=== PATIENT | female | born 1985 | race Hispanic/Latino ===

== ENCOUNTER 2017-12-06 17:07 | Emergency (ER) | payer OTHER ==
[~2017-12-06] VITALS: Ht 157.5 cm; Wt 75.7 kg
--- OUTSIDE RECORDS SUMMARY | 2017-12-06 17:10 | XMS REPORT ---
Author Author [facility] Address Unknown Phone Unavailable Care Team Providers Care Probate Lawyer Name Role Phone INDU TONEY Unavailable Unavailable Problems This patient has no known problems. Allergies, Adverse Reactions, Alerts This patient has no known allergies or adverse reactions. Medications This patient has no known medications. Results Test Description Test Time Test Comments Text Results Atomic Results Result Comments CHEST 2 VIEWS [place] [address] Patient Name: BRITTANI HENLEY MR #: [id number] : 1985 Age/Sex: 31/F Req #: [id number] Adm Physician: Ordered by: INDU TONEY MD Report #: [id number] Location: ER Room/Bed: Procedure: [id number] DX/CHEST 2 VIEWS Exam Date: 07/15/17 Exam Time: 1430 REPORT STATUS: Signed EXAMINATION: PA and lateral views of the chest. COMPARISON: None CLINICAL HISTORY: Chest pain DISCUSSION: Lines/tubes: None. Lungs: The lungs are well inflated and clear. There is no evidence of pneumonia or pulmonary edema. Pleura: There is no pleural effusion or pneumothorax. Heart and mediastinum: Cardiomediastinal silhouette is unremarkable. Pulmonary vasculature is normal. Bones and soft tissues: No acute bony abnormalities. IMPRESSION: No acute cardiopulmonary abnormalities. Signed by: Dr. Ally Zaragoza M.D. on 07/15/2017 2:45 PM Dictated By: ALLY ZARAGOZA MD 144 Transcribed By: MATT on 07/15/17 144 COPY TO: INDU TONEY MD
--- NOTE | 2017-12-06 18:48 | Diagnostic Imaging Report ---
PROCEDURE:TRANSVAGINAL ULTRASOUND COMPARISON:None. INDICATIONS:EVALUATE FOR RPOC. Status post D\T\C 2 weeks ago TECHNIQUE: Grayscale transverse and sagittal transabdominal and transvaginal images were obtained of the pelvis. Transvaginal imaging was medically necessary to better evaluate the endometrium.. FINDINGS: 32 year-old female patient G5, P4, A1 with stated LMP 09/05/2017 UTERUS: 8.3 x 5.1 x 7.2 cm. Anteverted. No focal lesions. 1.0 x 0.6 x 1.0 cm and 2.5 x 0.6 x 0.7 cm hypoechoic lesions in the cervix, which may represent a minimally complex nabothian cysts. ENDOMETRIUM: Endometrial stripe measures 1.4 cm. Heterogeneous endometrium with hyperechoic area at the fundus, measuring 2.3 x 1.5 x 1.8 cm, with increased vascularity. RIGHT OVARY: 1.7 x 2.5 x 2.4 cm. No focal lesions. LEFT OVARY: 2.4 x 2.6 x 1.9 cm. No focal lesions. There is no free fluid within the pelvis. No adnexal masses. CONCLUSION: 1. Findings in the endometrium highly suggestive of retained product of conception in the clinical setting. Martin Zaragoza M.D. Dictated by: Martin Zaragoza M.D. on 12/06/2017 at 18:47 Electronically approved by: Martin Zaragoza M.D. on 12/06/2017 at 18:47
[2017-12-06 18:56] LABS: BILIRUBIN,URINE NEGATIVE (NEGATIVE); CLARITY,URINE HAZY (CLEAR); COLOR,URINE RED (YELLOW); KETONES,URINE NEGATIVE (NEGATIVE); LEUKOCYTE ESTERASE ,URINE TRACE (NEGATIVE); NITRITE,URINE NEGATIVE (NEGATIVE); URINE UROBILINOGEN 0.2 mg/dL (0.2 - 1)
[2017-12-06 18:59] LABS: PROTEIN,URINE DIPSTICK 1+ (NEGATIVE)
[2017-12-06 19:08] LABS: RBC,URINE >50 /HPF (0-5); WBC,URINE (MAN) 0-5 /HPF (0-5)
[2017-12-06 19:15] LABS: BASOPHILS # (AUTO) 0.1 (0.0-0.1); BASOPHILS % 0.5 % (0.0-1.0); EOSINOPHILS # (AUTO) 0.1 (0.0-0.4); EOSINOPHILS % 1.3 % (0.0-6.0); HEMOGLOBIN 13.5 g/dL (12.0-16.0); LYMPHOCYTES # (AUTO) 1.5 (1.0-3.2); LYMPHOCYTES % 13.6 % (18.0-39.1); MEAN CORPUSCULAR HEMOGLOBIN 31.3 pg (28-32); MEAN CORPUSCULAR HGB CONC 33.8 g/dL (31-35); MEAN CORPUSCULAR VOLUME 92.8 fL (81-99); MONOCYTES # (AUTO) 0.5 (0.2-0.8); MONOCYTES % 4.3 % (4.4-11.3); NEUTROPHILS # (AUTO) 8.7 (2.1-6.9); NEUTROPHILS % 79.8 % (38.7-80.0); PLATELET COUNT 250 x10e3/uL (140-360); RED BLOOD COUNT 4.31 x10e6/uL (3.6-5.1); RED CELL DISTRIBUTION WIDTH 12.8 % (11.7-14.4)
[2017-12-06 19:30] VITALS: BP 133/89
[2017-12-06 19:34] LABS: ALANINE AMINOTRANSFERASE 17 IU/L (0-55); ALBUMIN 4.2 g/dL (3.5-5.0); ALBUMIN/GLOBULIN RATIO 1.1 (0.8-2.0); ALKALINE PHOSPHATASE 47 IU/L (40-150); ANION GAP 11.8 mmol/L (8-16); BLOOD UREA NITROGEN 10 mg/dL (7-26); BUN/CREATININE RATIO 14 (6-25); CALCIUM 9.4 mg/dL (8.4-10.2); CARBON DIOXIDE 24 mmol/L (22-29); CHLORIDE 106 mmol/L (98-107); CREATININE, SERUM 0.69 mg/dL (0.57-1.11); EST GLOMERULAR FILTRATION RATE > 60 ML/MIN (60-); GLUCOSE 105 mg/dL (74-118); POTASSIUM 3.8 mmol/L (3.5-5.1); SODIUM 138 mmol/L (136-145)
== END 2017-12-06 19:36 | disposition home or self-care (01) ==
LOC: ER 17:07
DX: O04.6 Delayed or excessive hemorrhage following (induced) termination of pregnancy (principal); N93.8 Other specified abnormal uterine and vaginal bleeding
CPT/HCPCS: 36415; 76830; 80053; 81001; 84702; 85025; 99284

== ENCOUNTER 2019-11-21 09:47 | Emergency (ER) | payer BC, OTHER ==
[~2019-11-21] VITALS: Ht 154.9 cm; Wt 70.1 kg
[2019-11-21] MEDS ORDERED: IBUPROFEN 400 MG TAB PO ONE (10:30)
[2019-11-21] MEDS ORDERED: IBUPROFEN 400 MG TAB ONE (10:33)
--- NOTE | 2019-11-21 10:45 | Diagnostic Imaging Report ---
Left ankle, 3 views. History: Fall downstairs. Findings: There is lateral soft tissue swelling. Bone mineralization is normal. Transverse linear lucency is seen along just the lateral cortex of the distal fibula without intra-articular extension or displacement. Remaining bones are intact. There are no lytic or sclerotic lesions. The joint spaces are within normal limits. IMPRESSION: Nondisplaced fracture of the lateral malleolus. Signed by: Dashawn Lopez on 11/21/2019 10:42 AM
[2019-11-21] MEDS ORDERED: NAPROSYN500 MG PO (11:10)
[2019-11-21 11:21] VITALS: BP 172/89
== END 2019-11-21 11:35 | disposition home or self-care (01) ==
LOC: FSED 09:47
DX: S82.65XA Nondisplaced fracture of lateral malleolus of left fibula, initial encounter for closed fracture (principal); W10.8XXA Fall (on) (from) other stairs and steps, initial encounter
CPT/HCPCS: 99283

== ENCOUNTER 2020-02-20 06:36 | Inpatient (IN) | payer BC, OTHER ==
[~2020-02-20] VITALS: Ht 160 cm; Wt 72.6 kg
[~2020-02-20 06:36] MED LIST: NAPROSYN500 MG PO
--- OUTSIDE RECORDS SUMMARY | 2020-02-20 06:39 | XMS REPORT | Summary of Care ---
Author Author [facility] - Health Organization [facility] - Health Address Unknown Phone Unavailable Care Team Providers Care Priming Machine Operator Name Role Phone Hilaria Garrison CNM PCP Unavailable Reason for Visit * Reason Comments Appointment wwe Encounter Details Care Team Description Date Type Department Isabel Dacosta CNM [address] [place] [address] Appointment (wwe) 02/09/2020 [facility] [address] [place] [address] Allergies No Known Allergiesdocumented as of this encounter (statuses as of 02/09/2020) Medications End Date Status Medication Sig Dispensed Refills Start Date Active norethindrone (ORTHO Take 1 tablet 1 Package 6 MICRONOR) 0.35 mg by mouth 9 tabletIndications: OCP daily. (oral contraceptive pills) initiation Active methIMAzole 10 mg Take 1 tablet 90 tablet 1 tabletIndications: by mouth 0 Hyperthyroidism daily. documented as of this encounter (statuses as of 02/09/2020) Active Problems Problem Noted Date Hyperthyroidism 04/03/2019 Overview: Stopped meds at delivery. TFTs done 2018 Uses oral contraception 01/30/2019 documented as of this encounter (statuses as of 02/09/2020) Resolved Problems Problem Noted Date Resolved Date Well woman exam 04/03/2019 11/05/2019 Overview: Last pap neg 2018 Screen for STD (sexually transmitted disease) 01/30/2019 11/05/2019 Constipation, unspecified constipation type 01/30/2019 04/03/2019 Breast feeding status of mother 01/13/20192019 (spontaneous vaginal delivery) 01/10/201908/2019 Single live 01/10/2019 01/30/2019 Anemia, 01/10/2019 11/05/2019 Thrombocytopenia 01/10/2019 11/05/2019 39 weeks gestation of 01/08/20192018 with 39 completed weeks gestation 01/08/2019 01/30/2019 Exposure to the flu 12/30/2018 04/03/2019 Anemia of mother in , antepartum 12/26/2018 01/30/2019 Influenza vaccination declined by patient 12/26/2018 04/03/2019 Overview: counseling done Hyperthyroidism affecting in third trimester 09/201904/03/2019 Obesity affecting , antepartum 09/22/2018 04/03/2019 Multiparity 08/23/2018 11/05/2019 Overview: Not for BTL Nausea/vomiting in 08/20/2018 9 Tachycardia 07/08/2018 01/30/2019 High-risk in third trimester 05/29/2018 01/30/2019 History of abnormal cervical Pap smear 05/29/2018 12/26/2018 Obesity (BMI 30.0-34.9) 05/29/2018 12/26/2018 Hyperthyroidism affecting , antepartum 05/29/2018 12/26/2018 Rubella non-immune status, antepartum 05/28/2018 11/05/2019 documented as of this encounter (statuses as of 02/09/2020) Immunizations Name Administration Dates Next Due MMR 04/03/2019, 01/10/2019 Tdap 10/25/2018 documented as of this encounter Social History Date Tobacco Use Types Packs/Day Years Used Never Smoker Smokeless Tobacco: Never Used Drinks/Week oz/Week Comments Alcohol Use No Sex Assigned at Date Recorded Not on file Industry Job Start Date Occupation Not on file Not on file Not on file Travel End Travel History Travel Start No recent travel history available. documented as of this encounter Last Filed Vital Signs Not on filedocumented in this encounter Plan of Treatment Care Team Description Date Type Specialty Isabel Dacosta, CNM [address] [address] [phone] 04/15/2020 Office Visit [facility] Health Maintenance Due Date Last Done Comments INFLUENZA VACCINE (#1) 2019 PAP SMEAR 05/27/2021 05/27/2018 DTaP,Tdap,and Td Vaccines 10/25/2028 10/25/2018 (2 - Td) PNEUMOCOCCAL 0-64 YEARS Aged Out No longer elig ible based COMBINED SERIES on patient's age to complete this topic documented as of this encounter Results Not on filedocumented in this encounter Insurance Type Payer Benefit Subscriber ID Effective Phone Address Plan / Dates Group PPO/POS BCBS OF [place] BCBS OF [id number] 2019-P [phone] P O [facility] [id number] OUT OF [facility] [id number] documented as of this encounter
--- OUTSIDE RECORDS SUMMARY | 2020-02-20 06:39 | XMS REPORT | Summary of Care ---
Author Author [facility] - Health Organization [facility] - Health Address Unknown Phone Unavailable Care Team Providers Care Icu Nurse Name Role Phone Bladimir Hilarianadia Armas CNM PCP Unavailable Reason for Visit * Reason Comments Follow-up pt confirmed med Thyroid Problem Encounter Details Care Team Description Date Type Department Pricila Copeland MD [address] [place] [address] Hyperthyroidism (Primary Dx); Uses oral contraception 11/05/2019 Office Visit [facility] Endocrinology, [address] [phone] Allergies No Known Allergiesdocumented as of this encounter (statuses as of 11/05/2019) Medications End Date Status Medication Sig Dispensed Refills Start Date Active norethindrone (ORTHO Take 1 tablet 1 Package 6 MICRONOR) 0.35 mg by mouth 9 tabletIndications: OCP daily. (oral contraceptive pills) initiation Active methIMAzole 10 mg Take 1 tablet 90 tablet 1 tabletIndications: by mouth 0 Hyperthyroidism daily. 11/05/2019 Discontinued (Error) ibuprofen 600 mg Take 1 tablet 60 tablet 1 tabletIndications: by mouth 9 Multiparity, every 6 (six) (spontaneous vaginal hours as delivery) needed for Pain (scale 1-3) or Pain (scale 4-6) (Pain). Take with food or milk. 11/05/2019 Discontinued (Dose adjustmen t) methIMAzole 5 mg Take 1 tablet 90 tablet 0 tabletIndications: by mouth 9 Hyperthyroidism daily. documented as of this encounter (statuses as of 11/05/2019) Active Problems Problem Noted Date Hyperthyroidism 04/03/2019 Overview: Stopped meds at delivery. TFTs done 2018 Uses oral contraception 01/30/2019 documented as of this encounter (statuses as of 11/05/2019) Resolved Problems Problem Noted Date Resolved Date Well woman exam 04/03/2019 11/05/2019 Overview: Last pap neg 2017 Screen for STD (sexually transmitted disease) 01/30/2019 [...] as of this encounter (statuses as of 11/05/2019) Immunizations Name Administration Dates Next Due MMR [...] of this encounter Last Filed Vital Signs Reading Time Taken Comments Vital Sign 119/79 11/05/2019 10:55 AM QUALITY SYSTEMS SPECIALIST Blood Pressure 83 11/05/2019 10:55 AM QUALITY SYSTEMS SPECIALIST Pulse - - Temperature - - Respiratory Rate 96% 11/05/2019 10:55 AM QUALITY SYSTEMS SPECIALIST Oxygen Saturation - - Inhaled Oxygen Concentration 70.2 kg (154 lb 12.8 oz) 11/05/2019 10:55 AM QUALITY SYSTEMS SPECIALIST Weight 157.5 cm (5' 2") 11/05/2019 10:55 AM QUALITY SYSTEMS SPECIALIST Height 28.31 11/05/2019 10:55 AM QUALITY SYSTEMS SPECIALIST Body Mass Index documented in this encounter Progress Notes * Pricila Copeland MD - 11/05/2019 10:30 AM QUALITY SYSTEMS SPECIALIST Cc: Chief Complaint Patient presents with Follow-up pt confirmed med Thyroid Problem Mariam Garcia is a 33 year old female. Patient developed hyperthyroidism in her first trimester was placed on treatment , her child is ten months olg. She was kennedy to come for her follow up for some time and forgot her requested lab s. Since she ran out of her medicine her palpitations, tremors and anxiety has come back. Allergies Mariam has No Known Allergies. Medications Outpatient Medications Prior to Visit Medication Sig Dispense Refill methIMAzole 5 mg tablet Take 1 tablet by mouth daily. 90 tablet 0 norethindrone (ORTHO MICRONOR) 0.35 mg tablet Take 1 tablet by mouth daily. 1 Package 6 ibuprofen 600 mg tablet Take 1 tablet by mouth every 6 (six) hours as needed for Pain (scale 1-3) or Pain (scale 4-6) (Pain). Take with food or milk. 60 tab let 1 No facility-administered medications prior to visit. Histories Past Medical History: Diagnosis Date Anemia of mother in , antepartum 12/26/2018 Anxiety 2016 HPV (human papilloma virus) anogenital infection 2016 Hyperthyroidism 05/14/2018 Hyperthyroidism affecting in third trimester 12/03/2018 OCP (oral contraceptive pills) initiation 01/30/2019 Pap smear abnormality of cervix 2015 +ASCUS+HPV Thrombocytopenia 01/10/2019 Past Surgical History: Procedure Laterality Date COLPOSCOPY 2016 Social History Socioeconomic History Marital status: Single Spouse name: Not on file Number of children: Not on file Years of education: Not on file Highest education level: Not on file Occupational History Not on file Social Needs Financial resource strain: Not on file Food insecurity: Worry: Not on file Inability: Not on file Transportation needs: Medical: Not on file Non-medical: Not on file Tobacco Use Smoking status: Never Smoker Smokeless tobacco: Never Used Substance and Sexual Activity Alcohol use: No Drug use: No Sexual activity: Yes Partners: Male control/protection: None Comment: Last intercourse: 05/25/2018 Lifestyle Physical activity: Days per week: Not on file Minutes per session: Not on file Stress: Not on file Relationships Social connections: Talks on phone: Not on file Gets together: Not on file Attends hoahaoism service: Not on file Active member of club or organization: Not on file Attends meetings of clubs or organizations: Not on file Relationship status: Not on file Intimate partner violence: Fear of current or ex partner: Not on file Emotionally abused: Not on file Physically abused: Not on file Forced sexual activity: Not on file Other Topics Concern Not on file Social History Narrative Mariam Garcia is a 32 year old female, denies any physical or emotional ab use, no trauma, feels safe at home. Family History Problem Relation Age of Onset No Significant Medical Problems Mother Hyperthyroidism Father High cholesterol Maternal Grandmother No Significant Medical Problems Maternal Grandfather No Significant Medical Problems Paternal Grandmother No Significant Medical Problems Paternal Grandfather Review of Systems Constitutional: Negative. HENT: Negative. Respiratory: Negative. Cardiovascular: Positive for palpitations. Gastrointestinal: Negative. Musculoskeletal: Negative. Neurological: Positive for tremors. Psychiatric/Behavioral: The patient is nervous/anxious. Endocrine: Endocrine negativePositive for goiter. Vital Signs BP 119/79 (BP Location: Right arm, Patient Position: Sitting, BP CUFF SIZE: Adul t Large) | Pulse 83 | Ht 5' 2" (1.575 m) | Wt 154 lb 12.8 oz (70.2 kg) | SpO 2 96% | BMI 28.31 kg/m Physical Exam Constitutional: She is oriented to person, place, and time. She appears well-dev eloped and well-nourished. Eyes: Pupils are equal, round, and reactive to light. Conjunctivae and EOM are n ormal. Left eye exhibits no discharge. No scleral icterus. Neck: Normal range of motion. Neck supple. No JVD present. No tracheal deviation present. No thyromegaly present. Cardiovascular: Normal rate, regular rhythm, normal heart sounds and intact dist al pulses. Exam reveals no gallop and no friction rub. No murmur heard. Pulmonary/Chest: Effort normal and breath sounds normal. No respiratory distress . She has no wheezes. She has no rales. She exhibits no tenderness. Abdominal: Soft. Bowel sounds are normal. She exhibits no distension and no mass . There is no tenderness. There is no rebound and no guarding. No hernia. Musculoskeletal: Normal range of motion. She exhibits no edema, tenderness or de formity. Lymphadenopathy: She has no cervical adenopathy. Neurological: She is alert and oriented to person, place, and time. She displays normal reflexes. No cranial nerve deficit or sensory deficit. She exhibits norm al muscle tone. Coordination normal. Skin: Skin is warm and dry. Capillary refill takes less than 2 seconds. No rash noted. No erythema. No pallor. Psychiatric: She has a normal mood and affect. Her behavior is normal. Judgment and thought content normal. Assessment/Plan Mariam was seen today for follow-up and thyroid problem. Diagnoses and all orders for this visit: Hyperthyroidism - methIMAzole 10 mg tablet; Take 1 tablet by mouth daily. - THYROID STIMULATING IMMUNOGLOB; Future - THYROID STIMULATING HORMONE; Future - FREE T4; Future - TRIIODOTHYRONINE; Future - COMP. METABOLIC PANEL (75195); Future - CBC WITH DIFF; Future Restarted treatment she is hyperthyroid almost two years, will probably suggest ablation in near future. ITY SYSTEMS SPECIALIST documented in this encounter Plan of Treatment Order Schedule Name Type Priority Associated Diag noses Expected: 12/06/2019, Expires: 1 THYROID STIMULATING LAB Routine Hyperthyro idism IMMUNOGLOB Expected: 12/06/2019, Expires: 1 THYROID STIMULATING LAB Routine Hyperthyro idism HORMONE Expected: 12/06/2019, Expires: 1 FREE T4 LAB Routine Hyperthyroidism Expected: 12/06/2019, Expires: 1 TRIIODOTHYRONINE LAB Routine Hyperthyroidi sm Expected: 12/06/2019, Expires: 1 COMP. METABOLIC PANEL LAB Routine Hyperthy roidism (83908) Expected: 12/06/2019, Expires: 1 CBC WITH DIFF LAB Routine Hyperthyroidism Health Maintenance Due Date Last Done Comments INFLUENZA VACCINE (#1) 2019 PAP SMEAR 05/27/2021 05/27/2018 DTaP,Tdap,and Td Vaccines 10/25/2028 10/25/2018 (2 - Td) PNEUMOCOCCAL 0-64 YEARS Aged Out No longer elig ible based COMBINED SERIES on patient's age to complete this topic documented as of this encounter Results Not on filedocumented in this encounter Visit Diagnoses Diagnosis Hyperthyroidism - Primary Thyrotoxicosis without mention of goite r or other cause, without mention of thyrotoxic crisis or storm Uses oral contraception documented in this encounter Insurance Type Payer Benefit Subscriber ID Effective Phone Address Plan / Dates Group PPO/POS BCBS OF [place] BCBS OF [id number] 2019-P [phone] P O [facility] [id number] OUT OF [facility] [id number] documented as of this encounter
--- OUTSIDE RECORDS SUMMARY | 2020-02-20 06:39 | XMS REPORT | Summary of Care ---
Author Author [facility] - Health Organization [facility] - Health Address Unknown Phone Unavailable Care Team Providers Care Senior Economist Name Role Phone Bladimir Hilarianadia Armas CNM PCP Unavailable Reason for Visit * Reason Comments Follow-up pt confirmed med Thyroid Problem Encounter Details Care Team Description Date Type Department Pricila Copeland MD [address] [place] [address] Hyperthyroidism (Primary Dx); Uses oral contraception 11/05/2019 Office Visit [facility] Endocrinology, [address] [phone] Allergies No Known Allergiesdocumented as [...] Comments Vital Sign 119/79 11/05/2019 10:55 AM CUSHION SPRING ASSEMBLER Blood Pressure 83 11/05/2019 10:55 AM CUSHION SPRING ASSEMBLER Pulse - - Temperature - - Respiratory Rate 96% 11/05/2019 10:55 AM CUSHION SPRING ASSEMBLER Oxygen Saturation - - Inhaled Oxygen Concentration 70.2 kg (154 lb 12.8 oz) 11/05/2019 10:55 AM CUSHION SPRING ASSEMBLER Weight 157.5 cm (5' 2") 11/05/2019 10:55 AM CUSHION SPRING ASSEMBLER Height 28.31 11/05/2019 10:55 AM CUSHION SPRING ASSEMBLER Body Mass Index documented in this encounter Progress Notes * Pricila Copeland MD - 11/05/2019 10:30 AM CUSHION SPRING ASSEMBLER Cc: Chief Complaint Patient presents with Follow-up [...] file Gets together: Not on file Attends gnosticism service: Not on file Active member of [...] - TRIIODOTHYRONINE; Future - COMP. METABOLIC PANEL (12873); Future - CBC WITH DIFF; Future Restarted treatment she is hyperthyroid almost two years, will probably suggest ablation in near future. ION SPRING ASSEMBLER documented in this encounter Plan of Treatment [...] COMP. METABOLIC PANEL LAB Routine Hyperthy roidism (67100) Expected: 12/06/2019, Expires: 1 CBC WITH DIFF [...] Plan / Dates Group PPO/POS BCBS OF [place] BCBS OF [id number] 2019-P [phone] P O [facility] [id number] OUT OF [facility] [id number] documented as of this encounter
--- NOTE | 2020-02-20 07:00 | NUR ---
Assumed care of pt
[2020-02-20] MEDS ORDERED: SODIUM CHLORIDE 0.9% 1000ML 1,000 ML IV STA (07:01)
[2020-02-20] MEDS ORDERED: KETOROLAC TROMETHAMINE 30 MG/ML VIAL IV ONE (07:15)
[2020-02-20] MEDS ORDERED: ONDANSETRON HCL INJ 2MG/ML 2ML 2 MG/ML VIAL IV ONE (07:15)
[2020-02-20] MEDS ORDERED: FAMOTIDINE 20 MG/2 ML VIAL IV ONE ×2 (07:15→07:18)
[2020-02-20] MEDS ORDERED: ONDANSETRON HCL INJ 2MG/ML 2ML 2 MG/ML VIAL ONE ×2 (07:18→19:54)
[2020-02-20] MEDS ORDERED: SODIUM CHLORIDE 0.9% 1000ML 1,000 ML ONE ×2 (07:18→10:40)
[2020-02-20] MEDS ORDERED: KETOROLAC TROMETHAMINE 30 MG/ML VIAL ONE (07:18)
[2020-02-20] MEDS ORDERED: IOPAMIDOL 370 MG/ML 200 ML INFUS..BTL INJ ONE (07:26)
[2020-02-20] MEDS ORDERED: SODIUM CHLORIDE 0.9% 50ML 50 ML ONE (07:27)
--- NOTE | 2020-02-20 10:10 | Diagnostic Imaging Report ---
CT abdomen and pelvis with contrast History: Right-sided abdominal pain Comparison: none Technique: serial axial imaging was performed following up to 100cc of non ionic iodinated intravenous contrast as per departmental protocol. Multiplanar images are reconstructed and reviewed when indicated. This CT examination is performed using one or more of the following dose reduction techniques: Automated exposure control, adjustment of the mA and /or kV according to patient size, and/or use of iterative reconstruction technique. Findings: Unremarkable appearance of pancreas and spleen. Unremarkable appearance of the gallbladder. Cholelithiasis is noted, without gallbladder wall thickening or pericholecystic fluid. Unremarkable appearance of adrenal glands, kidneys, ureters, and urinary bladder. . No small or large bowel obstruction. No apparent bowel wall thickening. The appendix appears fluid-filled, mildly distended, and demonstrates increased mucosal enhancement. There is mild periappendiceal fat stranding, without extraluminal air or organized fluid collection. No free fluid or lymphadenopathy. No abdominal aortic aneurysm. No aggressive osseous lesion. Impression: 1. Findings consistent with acute appendicitis, without evidence of perforation or abscess. 2. Cholelithiasis, without evidence of acute cholecystitis. Signed by: Richy Johnston MD on 02/20/2020 10:07 AM
--- NOTE | 2020-02-20 10:21 | NUR ---
[facility] called for transport to room 106
[2020-02-20] MEDS ORDERED: ONDANSETRON HCL INJ 2MG/ML 2ML 2 MG/ML VIAL IV PRN ×2 (10:30→16:00)
[2020-02-20] MEDS ORDERED: DIPHENHYDRAMINE HCL INJ 50 MG/ML VIAL IV PRN (10:30)
[2020-02-20] MEDS ORDERED: MORPHINE SULFATE INJ 4 MG/ML INJ 1ML IV PRN (10:30)
[2020-02-20] MEDS: SODIUM CHLORIDE 0.9% 1000ML 1,000 ML IV SCH ×2 (10:37→16:25)
[2020-02-20] MEDS ORDERED: PIPER-TAZ 3.375 GM 50 ML ONE (10:40)
--- NOTE | 2020-02-20 10:57 | NUR ---
Report to FLAKITA Roberts
--- NOTE | 2020-02-20 10:57 | NUR ---
RECEIVED REPORT FROM [facility]; PT COMING TO ROOM 106 WITH DX OF APPENDICITIS. PT RECEIVED 4 MG ZOFRAN, 30 MG TORADOL, 20 MG PEPCID, AND NS@125 ML/HR. PT ALSO RECEIVED ONE DOSE OF IV ZOSYN AT 1037. AWAITING PT'S ARRIVAL TO ROOM.
[2020-02-20] MEDS ORDERED: PIPER-TAZ 3.375 GM 50 ML IV SCH (11:00)
[2020-02-20] MEDS ORDERED: ACETAMINOPHEN 1000 MG/100 ML IV PRN (11:15)
--- NOTE | 2020-02-20 11:16 | NUR ---
PT ARRIVED TO ROOM 106 VIA EMS. PT TRANSFERRED EASILY FROM STRETCHER TO BED. PT AWAKE, ALERT, ORIENTED X3, DENIES ANY PAIN OR OTHER COMPLAINTS AT THIS TIME. PT IN STABLE CONDITION. WILL HAVE PT SIGN CONSENT FOR SURGERY.
[2020-02-20 11:18] VITALS: BP 149/72
[2020-02-20 11:57] VITALS: BP 149/72
[2020-02-20 12:00] VITALS: BP 149/72
--- NOTE | 2020-02-20 12:00 | NUR ---
PT LEFT TO GO TO OR FOR SURGERY; PT IN STABLE CONDITION.
--- NOTE | 2020-02-20 12:04 | Consultation ---
DATE OF CONSULTATION: 02/20/2020 REASON FOR CONSULTATION: Acute appendicitis. HISTORY OF PRESENT ILLNESS: The patient is a 34-year-old female admitted through the emergency room complaining of abdominal pain since last night. The pain is described as severe, located in the right lower quadrant. No diarrhea. No vomiting. The patient underwent a CAT scan that revealed acute appendicitis. The patient's labs reveal a white count of 15. Normal electrolytes. PAST MEDICAL HISTORY: Significant for hyperthyroidism, medically treated. She does not know the name of the medicine she is taking. PAST SURGICAL HISTORY: She has no previous surgeries. ALLERGIES: NO KNOWN ALLERGIES. SOCIAL HISTORY: She does not drink, does not smoke. She has 5 children. REVIEW OF SYSTEMS: Remarkable for what has been stated. PHYSICAL EXAMINATION: GENERAL: Reveals a 34-year-old female, who has some moderate distress, complaining of the right lower quadrant pain. She has pain when she moves. VITAL SIGNS: She is afebrile with stable vital signs. HEAD, EARS, EYES, NOSE, AND THROAT: Unremarkable. NECK: Supple. LUNGS: Clear. HEART: Reveals regular sinus rhythm. ABDOMEN: Soft, nondistended. There is exquisite tenderness in the right lower quadrant with localized rebound or McBurney's point. EXTREMITIES: Examination of the extremities reveal no clubbing, cyanosis, or edema. NEUROLOGIC: Nonfocal. ASSESSMENT: Acute appendicitis, possible gangrenous. PLAN: Plan is to proceed with laparoscopic appendectomy and possible open appendectomy. The procedure, indication, benefits, and risks have been discussed with the patient. She gives informed consent. MD PHILIPP Farfan/URSULA /[id number] YANA
[2020-02-20] MEDS ORDERED: BUPIVACAINE 0.5%/EPI 30 ML SDV INJ ONE (13:05)
[2020-02-20] MEDS ORDERED: FENTANYL CITRATE/PF 100MCG/2 ML INJ ONE (15:04)
[2020-02-20] MEDS ORDERED: MIDAZOLAM HCL 2 MG/2 ML VIAL ONE (15:04)
[2020-02-20] MEDS ORDERED: MEPERIDINE HCL INJ 25 MG/ML VIAL ONE (15:05)
--- NOTE | 2020-02-20 15:27 | NUR ---
REPORT FROM PACU; PT HAD LAP APPENDECTOMY WITH DR. REED. PT RECEIVED TOTAL OF 18.75 MG DEMEROL, WITH LAST DOSE OF 12.5 MG GIVEN AT 1509 FOR SHIVERING; PT'S PAIN CONTROLLED. NO NAUSEA. VITAL SIGNS FOLLOWS: 119/59, 100 HR, 16 BREATHS/MIN, 97% ON 2L. PT HAS 4 TROCHAR SITES TO ABDOMEN, COVERED WITH FOAM TAPE. PT ALERT, ORIENTED, IN STABLE CONDITION.
--- NOTE | 2020-02-20 15:34 | NUR ---
PT ARRIVED BACK TO ROOM 106; PT SLEEPING, EASILY AROUSABLE, REQUESTING WATER. NO SIGNS OF DISTRESS. WILL CONTINUE TO MONITOR.
--- NOTE | 2020-02-20 15:45 | Operative Report ---
DATE OF PROCEDURE: SURGEON: Aaron Cameron MD PREOPERATIVE DIAGNOSIS: Acute appendicitis with peritonitis. POSTOPERATIVE DIAGNOSIS: Acute appendicitis with peritonitis. PROCEDURE PERFORMED: Laparoscopic cholecystectomy. ANESTHESIA: General endotracheal. ESTIMATED BLOOD LOSS: Minimal. DRAINS: None. COMPLICATIONS: None. INDICATION AND FINDINGS: A 34-year-old female, admitted through the emergency room complaining of abdominal pain since the night prior to admission. The pain was described as severe, located in the right upper quadrant. No diarrhea. The patient underwent a CT scan of the abdomen that revealed acute appendicitis, gallstones, no ductal dilatation. Physical examination, severe, well localized tenderness in the right lower quadrant with rebound. INTRAOPERATIVE FINDINGS: Acute appendicitis. DESCRIPTION OF PROCEDURE: With the patient lying on operative table in the supine position, after administration of general endotracheal anesthesia, she was prepped and draped for laparoscopic appendectomy and possible open appendectomy. The procedure was begun by establishing pneumoperitoneum in the umbilical site after stab wound was made in the location and saline drop test was performed indicating intraperitoneal position of the needle. The 11/12 trocar was placed in the umbilical site and under direct vision with the camera. Then, we placed three 5 mm working ports, extra ones right lower quadrant, right upper quadrant, left upper quadrant medially. The appendix and the cecum were identified and then the appendix was grasped with atraumatic forceps. The peritoneal reflection was incised to allow mobilization of the cecum to allow exposure of the appendiceal base. After we did that, we made a rent in the mesoappendix and flushed with the cecum, carefully preserving the ileocecal valve and then we placed an Endo stapler with a blue load, transected the appendiceal at the base of the cecum. We then proceeded with appendectomy by firing the Endo REBEKAH. At this time with a white load detaching the appendix, we then placed an endobag and removed through the umbilical port easily. At this point, we irrigated the right lower quadrant. After ascertaining there was no bleeding, no evidence of bowel injury or sulcus entericus, we then released carefully the pneumoperitoneum. Then, we removed the trocars carefully, closed the umbilical site with 0 Vicryl and 3-0 Vicryl for the subcutaneous tissue in that location. The remaining 5 mm trocars were closed in marcellus. 0.25% Marcaine with epinephrine was given as local block at the end of the case. The patient tolerated the procedure well. Estimated blood loss was minimal. MD PHILIPP Farfan/URSULA /[id number]
[2020-02-20 15:52] VITALS: BP 117/60
[2020-02-20] MEDS: PIPER-TAZ 3.375 GM 50 ML IV SCH ×2 (16:25→21:27)
[2020-02-20] MEDS: FAMOTIDINE 20 MG/2 ML VIAL IV SCH (16:28)
[2020-02-20] MEDS: NAPROXEN 250 MG TAB PO SCH (17:48)
[2020-02-20] MEDS: HYDROMORPHONE 1MG/1ML INJ IV PRN ×2 (17:55→21:27)
[2020-02-20] MEDS ORDERED: METHIMAZOLE10 MG PO (18:13)
[2020-02-20 19:26] LABS: COLOR,URINE YELLOW (YELLOW)
[2020-02-20 19:27] LABS: BILIRUBIN,URINE NEGATIVE (NEGATIVE); CLARITY,URINE CLEAR (CLEAR); KETONES,URINE NEGATIVE (NEGATIVE); LEUKOCYTE ESTERASE ,URINE NEGATIVE (NEGATIVE); NITRITE,URINE NEGATIVE (NEGATIVE); PROTEIN,URINE DIPSTICK NEGATIVE (NEGATIVE); URINE UROBILINOGEN 0.2 mg/dL (0.2 - 1)
[2020-02-20 19:35] LABS: EPITHELIAL CELLS,URINE RARE /LPF
[2020-02-20] MEDS ORDERED: LIDOCAINE HCL 2% LOCAL INJ 5 ML SDV VIAL INJ ONE (19:54)
[2020-02-20] MEDS ORDERED: PROPOFOL IV EMULSION 10 MG/ML 20 ML VIAL ONE (19:54)
[2020-02-20] MEDS ORDERED: SEVOFLURANE INHAL SOLN 250 ML PEN BTL ONE (19:54)
[2020-02-20] MEDS ORDERED: ROCURONIUM BROMIDE 10 MG/ML 5ML VIAL IV ONE (19:54)
[2020-02-20] MEDS ORDERED: ACETAMINOPHEN 1000 MG/100 ML IV ONE (19:54)
[2020-02-20] MEDS ORDERED: DEXAMETHASONE SOD PHOS INJ 4 MG/ML VIAL ONE (19:54)
[2020-02-20 20:00] VITALS: BP 112/67
[2020-02-20 21:20] VITALS: BP 112/67
--- NOTE | 2020-02-20 21:20 | NUR ---
PATIENT RESTING IN BED AOX4, NO SIGNS OF DISTRESS NOTED. IV FLUIDS ARE RUNNING AT ORDERED RATE AND PATIENT VOICES PAIN AT LEVEL OF 7 AND WAS MEDICATED ORDERED. FOUR TROCAR SITES ON ABDOMEN ARE CLEAN, DRY, AND INTACT, NO DRAINAGE NOTED. BED IS IN LOWEST POSITION, SIDE RAILS ARE UP, CALL LIGHT IS WITHIN REACH, WILL CONTINUE TO MONITOR.
[2020-02-21] VITALS: BP 110/59
[2020-02-21] MEDS: HYDROMORPHONE 1MG/1ML INJ IV PRN ×2 (00:46→07:52)
[2020-02-21] MEDS: SODIUM CHLORIDE 0.9% 1000ML 1,000 ML IV SCH ×2 (02:37→11:11)
[2020-02-21 04:00] VITALS: BP 98/53
[2020-02-21] MEDS: PIPER-TAZ 3.375 GM 50 ML IV SCH ×3 (04:22→15:31)
[2020-02-21 07:09] LABS: BASOPHILS % 0.1 % (0.0-1.0); HEMATOCRIT 37.5 % (34.2-44.1); HEMOGLOBIN 12.4 g/dL (12.0-16.0); MEAN CORPUSCULAR HEMOGLOBIN 29.5 pg (28-32); MEAN CORPUSCULAR HGB CONC 33.1 g/dL (31-35); MEAN CORPUSCULAR VOLUME 89.1 fL (81-99); MONOCYTES # (AUTO) 0.8 (0.2-0.8); MONOCYTES % 8.2 % (4.4-11.3); NEUTROPHILS # (AUTO) 7.8 (2.1-6.9); NEUTROPHILS % 81.4 % (38.7-80.0); PLATELET COUNT 183 x10e3/uL (140-360); RED BLOOD COUNT 4.21 x10e6/uL (3.6-5.1); RED CELL DISTRIBUTION WIDTH 12.9 % (11.7-14.4)
[2020-02-21 07:24] LABS: ANION GAP 11.7 mmol/L (8-16); BLOOD UREA NITROGEN 6 mg/dL (7-26); BUN/CREATININE RATIO 11 (6-25); CALCIUM 8.7 mg/dL (8.4-10.2); CARBON DIOXIDE 21 mmol/L (22-29); CHLORIDE 111 mmol/L (98-107); CREATININE, SERUM 0.54 mg/dL (0.57-1.11); EST GLOMERULAR FILTRATION RATE > 60 ML/MIN (60-); GLUCOSE 102 mg/dL (74-118); POTASSIUM 3.7 mmol/L (3.5-5.1); SODIUM 140 mmol/L (136-145)
[2020-02-21 07:28] LABS: CHOL/HDL RATIO 2.7 (3.0-3.6); MAGNESIUM 1.9 MG/DL (1.3-2.1); PHOSPHORUS 3.2 MG/DL (2.3-4.7)
[2020-02-21 07:57] VITALS: BP 118/68
[2020-02-21] MEDS: NAPROXEN 250 MG TAB PO SCH ×2 (08:56→16:50)
[2020-02-21] MEDS: FAMOTIDINE 20 MG/2 ML VIAL IV SCH ×2 (08:56→16:50)
[2020-02-21 08:57] VITALS: BP 118/68
[2020-02-21] MEDS ORDERED: METHIMAZOLE 5 MG TAB PO SCH (09:00)
[2020-02-21] MEDS: HYDROCODONE/APAP 7.5MG-325MG 1 EA TAB PO PRN ×2 (11:05→15:36)
[2020-02-21 11:49] VITALS: BP 107/56
--- NOTE | 2020-02-21 14:10 | NUR ---
AT APPROXIMATELY 0846 DR. Rocky REED RECOMMENDED ADVANCING PATIENT'S DIET TO FULL LIQUID AND DISCHARGING PATIENT AFTER LUNCH IF SHE TOLERATES THE DIET. INFORMED CHRISTOPH FRIEDMAN NP OF DR. Rocky REED RECOMMENDATIONS. CHRISTOPH FRIEDMAN NP INSTRUCTED TO BE NOTIFIED AGAIN AFTER PATIENT CONSUMES LUNCH BEFORE HE DISCHARGES HER. NOTIFIED CHRISTOPH FRIEDMAN NP AT APPROXIMATELY 1230 THAT PATIENT TOLERATED DIET WITHOUT ANY ISSUES. Félix FRIEDMAN NP THEN STATED THAT HE WOULD PUT IN ORDERS TO DISCHARGE PATIENT ONCE HE LEAVES MED SURG 3. DR. Rocky REED VISITED PATIENT AT BEDSIDE AT APPROXIMATELY 1400 AND GAVE ME ANOTHER VERBAL ORDER TO DISCHARGE THE PATIENT. INFORMED PHYSICIAN THAT I AM WAITING ON VERBAL ORDER FROM DR. [facility]. PATIENT RESTING IN BED. AAOX3. ACYANOTIC. NO DISTRESS NOTED.
[2020-02-21 16:01] VITALS: BP 114/55
[2020-02-21] MEDS ORDERED: SIMETHICONE80 MG PO (16:05)
[2020-02-21] MEDS ORDERED: TYLENOL WITH C1 EACH PO (16:05)
--- NOTE | 2020-02-21 16:49 | History and Physical ---
CHIEF COMPLAINT: Abdominal pain. HISTORY OF PRESENT ILLNESS: The patient is a 34-year-old female, who began having abdominal pain in the epigastric and then subsequently right lower quadrant area, rated at 9/10, which prevented her from sleeping last night. She denied having any nausea, vomiting, or diarrhea. She reports a fever of 101 with chills yesterday. She drove herself to the emergency department around 6:00 a.m. this morning to [facility] and was seen by the ER physician and acute appendicitis was diagnosed. She has since had appendectomy. PAST MEDICAL HISTORY: Hyperthyroidism. PAST SURGICAL HISTORY: None. FAMILY HISTORY: Maternal grandmother had hypertension and myocardial infarction. SOCIAL HISTORY: Denies any previous history of tobacco, alcohol, or illicit drugs. ALLERGIES: NO KNOWN ALLERGIES. MEDICATIONS: She takes naproxen twice a day at home for pain. REVIEW OF SYSTEMS: GENERAL: She had fever with chills before, but none now. Denies any significant weight loss or weight gain. No complaints regarding her eyes, ears, and nose. She has some sore throat from having the ET tube during surgery. RESPIRATORY: No complaints of shortness of breath, cough, or phlegm. GENITOURINARY: No complaints of difficulty urinating or dysuria. PSYCHIATRIC: No psychiatric history. INTEGUMENTARY: Denies rash or lesions. CARDIOVASCULAR: She states she has palpitations at times due to hyperthyroidism. GASTROINTESTINAL: No postoperative nausea or vomiting. Her last bowel movement was February 18. Currently, pain level is about 5/10. MUSCULOSKELETAL: Denies any current joint or muscle pains. NEUROLOGIC: Denies headache or dizziness. ENDOCRINE: Denies history of diabetes mellitus. HEMATOLOGIC: No complaints of bleeding anywhere. PHYSICAL EXAMINATION: VITAL SIGNS: Temperature 98.4, T-max 99.6, heart rate 113, respirations 17, blood pressure 117/60, pulse oximetry 98% on 2 L of oxygen via nasal cannula. GENERAL: Lying supine in bed, awake, alert, in no acute distress. HEENT: Extraocular eye movements are intact. NECK: Supple. No lymphadenopathy, thyromegaly, or JVD. CARDIOVASCULAR: Regular rate and rhythm. No murmur. ABDOMEN: Bowel sounds positive. Soft, tender to gentle palpation. She has a dressing, clean, dry, and intact over the abdomen. No drainage. EXTREMITIES: No clubbing, cyanosis, edema, or signs and symptoms of DVT. LABORATORY DATA: Coronavirus test has been collected and is pending. Sodium 139, potassium 3.5, chloride 105, CO2 of 24, BUN 8, creatinine 0.4, glucose 104, albumin 4.4, alkaline phosphatase 95, ALT 17, amylase 19, AST 23, total bilirubin 1.5, GGT 11, total protein 7.8. test was negative. Urinalysis showed 15 mg/dL of ketones, small amount of blood, specific gravity greater than 1.03, pH 6.0, negative for proteins, Uro 0.2, nitrites and leukocyte esterase both negative. WBCs 11.3, hemoglobin 15, hematocrit 45.1, and platelets 189. No previous lipid panel, TSH, or hemoglobin A1c noted. I will obtain these tomorrow morning. CT of the abdomen and pelvis showed findings consistent with acute appendicitis without evidence of perforation or abscess. Cholelithiasis without evidence of acute cholecystitis. ASSESSMENT AND PLAN: 1. Acute appendicitis, status post appendectomy on 02/20/2020, by Dr. Aaron Cameron. Continue aggressive IV fluids with normal saline at 125 mL an hour for good hydration. Continue Zosyn 3.375 g IV q.6 hours, Tylenol p.r.n. for fever or pain control with IV Dilaudid 0.5 mg IV every 3 hours p.r.n. for severe pain, p.r.n. IV Zofran for any nausea. Incentive spirometry every hour while awake. Splinting with pillow has been instructed. 2. Cholelithiasis without cholecystitis. Surgery following. Monitor. 3. Hyperthyroidism. TSH in the morning. Monitor telemetry. The patient is not taking any thyroid medications at home. 4. Prophylaxis, Protonix and SCDs. H and P time spent 60 minutes, [id number]. Dictated by dEson Dietz, LVN [facility] MD MARYSOL EvansP/MODL /[id number]
--- NOTE | 2020-02-21 17:35 | Discharge Summary ---
HOSPITAL COURSE: The patient is a 34-year-old female, who began having abdominal pain in the epigastric and right lower quadrant area, rated 9/10 on a 0 to 10 pain scale, which was preventing her from sleeping. She denied any nausea, vomiting, or diarrhea prior to admission. She reported having fever of 101 with chills. Drove herself to the emergency department at 6:00 a.m. and was seen by the emergency department physician, diagnosed with acute appendicitis. She underwent an acute appendectomy on 02/20/[address] Aaron Cameron. There were no complications. The patient is doing much better today. Please see history and physical for laboratory details from admission. Today, temperature 97.8, heart 78, blood pressure 98/53, respirations 19, oxygen saturation 97%. Today, 02/20, WBC 9.57, hemoglobin 12.4, hematocrit 37.5, platelets 183. Sodium 140, potassium 3.7, chloride 111, CO2 of 21. BUN 6, creatinine 0.54, estimated GFR greater than 60, glucose 102. Hemoglobin A1c 5.3%. Calcium 8.7, phosphorus 3.2, magnesium 1.9, triglycerides 48, cholesterol 97, LDL 51, HDL 36, lipase 6. TSH 0.0. Coronavirus PCR collected on 02/20/2020 was negative. Preliminary urine culture from 02/19 has not shown any growth thus far. Cultures in process. Re-intubation required. Dr. Cameron with Surgery has seen and evaluated the patient today, states the patient can be discharged from his standpoint. The patient has continued her methimazole for hyperthyroidism. She is tolerating a full liquid diet. Follow up with Surgery as directed. Follow up with her PCP in 1 to 2 weeks and establish one if needed. Overall, the patient is doing well. Has minimal complaints. Does have some gas. We will send her home with a prescription for simethicone 80 mg p.o. b.i.d. and Tylenol #3 with codeine 1 tablet q.4 hours p.r.n. for pain. Dictated by Edson Dietz, KUMAR Dalton Zavala MD HWP/RACHIDL /[id number]
== END 2020-02-21 17:22 | disposition home or self-care (01) | DRG 343 ==
LOC: FSED 06:36 → ERHOLD 10:23 → MED/SURG 11:13 → OBSVTOIN 15:49
PROVIDERS: ADMIT Internal Medicine; ATTEND Internal Medicine
PROC: 0DTJ4ZZ Resection of Appendix, Percutaneous Endoscopic Approach (ICD-10-PCS; principal; 2020-02-20 15:00)
DX: K35.31 Acute appendicitis with localized peritonitis and gangrene, without perforation (principal); E05.90 Thyrotoxicosis, unspecified without thyrotoxic crisis or storm; K80.80 Other cholelithiasis without obstruction
CPT/HCPCS: 36415; 74177; 80048; 80061; 80076; 81001; 81003; 81025; 83036; 83690; 83735; 84100; 84443; 85025; 87086; 87635; 88304; 96374; 96375; 99284; C1766; J1100; J1170; J1885; J2001; J2175; J2250; J2405; J2543; J3010; J7030; Q9967